=== PATIENT | female | born 1970 | race American Indian/Alaskan Native ===

== ENCOUNTER 2017-03-24 10:37 | Outpatient (CLI) | payer BC ==
--- NOTE | 2017-03-24 15:49 | XRay Report ---
LEFT FOOT THREE VIEWS: 03/24/17 CLINICAL: Left foot pain. FINDINGS: Moderate osteopenia. No fracture or dislocation. Mild arthritis at the fifth MTP joint. Nonspecific soft tissue edema of the forefoot and midfoot. No soft tissue air or foreign body. IMPRESSION: Nonspecific soft tissue edema. Minimal arthritis.
== END 2017-03-24 10:38 | disposition home or self-care (01) ==
LOC: SPVIMAG 10:37
PROVIDERS: ATTEND Orthopaedic Surgery Sports Medicine
DX: M19.072 Primary osteoarthritis, left ankle and foot (principal); M85.872 Other specified disorders of bone density and structure, left ankle and foot